=== PATIENT | male | born 1945 | race Caucasian/White ===

== ENCOUNTER 2019-01-02 10:42 | Observation (INO) ==
[~2019-01-02 10:42] MED LIST: CEFAZOLIN 1000MG 1,000 MG/7.5 ML SYR IV SCH; LR 15ML/HR IV SCH; PATIENT'S ALLERGY INFO NEEDS ENTERED SCH
[2019-01-02] MEDS ORDERED: BUPIVACAINE 0.5 % 5 MG/1 ML PF 10ML VIAL ONE (10:55)
[2019-01-02] MEDS ORDERED: BACITRACIN INJ 50,000 UNIT VIAL ONE (10:55)
[2019-01-02] MEDS ORDERED: LIDOCAINE HCL 1% 20 ML VIAL ONE (10:55)
--- NOTE | 2019-01-02 11:04 | History & Physical Bridge Note ---
Date of Service January 02, 2019 History & Physical Bridge Note I have examined the patient, reviewed the History & Physical and in the interval since the performance of the History & Physical I have noted the following changes of clinical significance: no changes noted
--- NOTE | 2019-01-02 11:05 | Pre Anesthesia Assessment ---
Date of Service January 02, 2019 Pre Sedation Assessment Cardiovascular RRR, no murmur, no edema Respiratory normal respiratory effort, lungs clear to auscultation Pre-Sedation Airway Assessment Smoking Status: Former smoker Hx Sleep Apnea: No Hx Difficult Intubation: No Short, Thick Neck: No Thyromental Distance: < 3.5 Finger Breadths Oral Cavity: + WNL Mallampati Class: II ASA: ASA3 Procedure Planning Contraindications for Sedation: none Current Medications Reviewed: Yes Notes The planned sedation has been discussed with the patient. Informed Consent was obtained. I have identified the patient, determined the appropriateness of sedation and have assessed the patient immediately prior to the procedure. All medicine(s) and interventions are by my order.
[2019-01-02] MEDS ORDERED: fentaNYL citrate 100 MCG/2 ML VIAL ONE (11:09)
[2019-01-02] MEDS ORDERED: CEFAZOLIN 250 MG/ML 1 GM VIAL ONE (11:09)
[2019-01-02] MEDS ORDERED: MIDAZOLAM HCL 5 MG/ML 1 ML VIAL ONE (11:09)
[2019-01-02] MEDS ORDERED: OXYCODONE/ACETAMINOPHEN 5mg/325mg TAB PO PRN (13:17)
[2019-01-02] MEDS ORDERED: ACETAMINOPHEN 325 MG TAB PO PRN (13:17)
--- NOTE | 2019-01-02 13:17 | Operative Report ---
Post Operative Report Pre & Post Diagnosis icm, chronic systolic CHF-NYHA Class III, LBBB Operation Date: 01/02/19 13:00 <No data on this case meets the specified criteria> Procedure Operation Date: 01/02/19 13:00 Actual Procedures p ICD Biventricular Implant - DO lilia Stewart Cineradiography w/Routine Exam - DO lilia Stewart Venogram, Unilateral - Adia Tripathi DO Surgeon Adia Tripathi, Train Starter none Estimated Blood Loss 20 Findings Consistent with Post-Op Diagnosis Specimens none Description of Procedure see official report I attest to the content of the Intraoperative Record and any orders documented therein. Any exceptions are noted below.
--- NOTE | 2019-01-02 13:17 | Post Anesthesia Assessment ---
Date of Service January 02, 2019 Post Sedation Assessment Vital Signs Temp Pulse Resp BP Pulse Ox 01/02/19 11:01 36.5 C 92 H 16 143/69 H 96 Recovery Score Activity: Moves 4 extremities Respiration: Deep Breath/Cough Circulation: +/-20% PreAnes Value Consciousness: Fully Awake Oxygen Saturation: > 92% On Room Air Discharge Sedation Level of Care: Fast Track Phase II Post Sedation Plan On clinical assessment, the patient appears to have tolerated the sedation without complications. Patient is recovering as anticipated. Patient will continue to be monitored by nursing and may be discharged when sedation discharge criteria are met per below protocol. Upon Completions of procedure and additional 15 minutes continue every 5 minute vital signs and the P.A.R. score; then discharge to a Phase I or Fast Track to Phase II per the following guidelines: * Discharge Patient to appropriate Phase II area if PAR is 8 or greater or return to pre- procedure baseline. The post - procedure orders will be as directed. * If PAR score is less than 8 or not return to pre-procedure baseline then patient will follow Phase I monitoring till PAR is reached for Phase II. The Phase I may be done in procedure room or may call to secure a Phase I area. * If naloxone or flumazenil are used for reversal, hold in Phase I for continued monitoring from when last reversal dose was given for a minimum of 60 minutes or longer pending the nurse and/or physician discretion of patient condition before discharge to Phase II. Please call the Sedation Physician to re-evaluate and complete post-note for discharge to Phase II area. Do NOT discharge from procedure sedation or Phase 1 until post- sedation evaluation note is complete by procedure /sedation MD Sedation Discharge Instructions to be given to the patient at discharge to home.
[2019-01-02] MEDS ORDERED: COLCHICINE 0.6 MG TAB PO PRN (13:19)
--- NOTE | 2019-01-02 13:25 | Discharge Summary ---
Date of Service January 02, 2019 Admission HPI Pt admitted for elective biv ICD Admission Exam Per Admitting Provider aaox3, NAD NC/AT, EOMI Supple No JVD Nrl S1/S2, No murmur CTA b/l no w/r/r soft nt/nd no LE edema b/l skin intact no focal deficits Principal Diagnosis Principal Diagnosis ICM s/p BiV ICD Discharge Exam aaox3, NAD NC/AT, EOMI Supple No JVD Nrl S1/S2, No murmur CTA b/l no w/r/r soft nt/nd no LE edema b/l skin intact no focal deficits left pectoral incision intact, no hematoma mild ecchymosis Discharge Data Allergies Allergy/AdvReac Type Severity Reaction Status Date / Time No Known Allergies Allergy Verified 01/02/19 11:23 Procedures Performed Operation Date: 01/02/19 13:00 Actual Procedures p ICD Biventricular Implant - dAia Tripathi DO s Cineradiography w/Routine Exam - Adia Tripathi DO s Venogram, Unilateral - Adia Tripathi DO Ordered Studies 01/02/19 07:30 EP Lab Images for PACS ONCE Hospital Course (1) Ischemic cardiomyopathy: (2) LBBB (left bundle branch block): (3) Chronic systolic congestive heart failure, NYHA class 2: Total Time Total Time Spent Total Time Spent (In Minutes): 30 Total Time Includes: Examination of the Patient, Medication Reconciliation and Other Discharge Plan Discharge Items Patient Disposition: Home - Self-Care Reason For Visit: Ischemic Cardiomyopathy Discharge Diagnosis: icm, LBBB, Chronic systolic HF-NYHA Class II Condition: Good Discharge Goals: Improve function Activity: As commented below Activity Comment: do not lift the left elbow over the left shoulder for 1 month Lifting: No more than 10 pounds Lifting Comment: do not lift more than 10 pounds with the left arm for 2 weeks Bathing: Keep incision dry Bathing Comment: can shower monday01/04/2019 Driving/Machine Use: Resume 1 day after discharge Non-emergency contact: Data Security Consultant Call non-emergency contact if: you have any medication questions Follow-up/Referrals: PCP,NO [Primary Care Provider] - Diet: Heart Healthy Addtl Provider Instructions: none Prescriptions: Continue isosorbide mononitrate 30 mg Tablet Extended Release 24 Hr 30 mg PO DAILY RF: 0 clopidogrel [Plavix] 75 mg Tablet 75 mg PO DAILY RF: 0 nitroglycerin [Nitrostat] 0.4 mg Tablet, Sublingual See Label Instructions .ROUTE .COMPLEX RF: 0 aspirin 81 mg Tablet,Chewable 81 mg PO DAILY RF: 0 metoprolol succinate [Toprol XL] 25 mg Tablet Extended Release 24 Hr 25 mg PO BID RF: 0 ergocalciferol (vitamin D2) 50,000 unit Capsule 50,000 unit PO DAILY RF: 0 colchicine 0.6 mg Tablet 0.6 mg PO Q6HWA PRN (Reason: Pain) RF: 0 losartan 100 mg Tablet 100 mg PO DAILY RF: 0 multivitamin Capsule 1 cap PO DAILY RF: 0 Stand-Alone Forms: [facility] Discharge Orders: Discharge Order (Routine); Ordered 01/03/19 Ordered By: Adia Tripathi Admission Data Admit Date/Time: 01/02/19 13:17 Attending Provider: Adia Tripathi Admit Provider: Adia Tripathi Primary Care Provider: PCP,RENEE Service: Telemetry
[2019-01-02] MEDS: METOPROLOL SUCC 25MG EXT REL TAB PO SCH (20:06)
--- NOTE | 2019-01-02 23:08 | Operative Report ---
DATE OF OPERATION: 01/02/2019 PREOPERATIVE DIAGNOSES: Ischemic cardiomyopathy, chronic systolic heart failure, [place] Heart Association class 2, left bundle branch block. POSTOPERATIVE DIAGNOSES: Ischemic cardiomyopathy, chronic systolic heart failure, [place] Heart Association class 2, left bundle branch block. PROCEDURE: Biventricular rate responsive implantable cardiac defibrillator under fluoroscopic guidance along with peripheral and coronary sinus venograms. SURGEON: Adia Tripathi DO. MARITIME GUARD: None. ANESTHESIA: Monitored conscious sedation administered under my supervision by Lynne Bo. Start time 1128, end time 1303. Total of 4 mg of Versed, 100 mcg of fentanyl. IV FLUIDS: 95 mL. CONTRAST: 25 mL. ANTIBIOTICS: 1 gram of Ancef. COMPLICATIONS: None. CONDITION: Stable. URINE OUTPUT: None. SPECIMENS: None. FINDINGS: See below. DRAINS: None. BLOOD LOSS: 20 mL. INDICATIONS: This is a 73-year-old gentleman with a past medical history for ischemic cardiomyopathy initially diagnosed in 03/2018 with an ejection fraction of 28%. 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 Due to his ischemic cardiomyopathy, left bundle and chronic systolic heart failure, it is recommended biventricular defibrillator. CONSENT: Consent was obtained prior to the patient going into Electrophysiology Lab. The patient was explained the risks, benefits, alternatives of procedure. Risks include but not limited to sudden cardiac , cardiac arrhythmias, vasectomy, myocardial infarction, injury to the blood vessels, chamber of the heart, lung, bleeding and infection. The patient understood these risks and agreed to the procedure as planned. Informed consent was obtained. DESCRIPTION OF THE PROCEDURE: The patient was brought into the Electrophysiology Lab in a fasting state. He was connected to continuous heel room supervisor. A timeout was performed to ensure patient identity and procedure correctly. The patient was prepped and draped in the left infraclavicular space in normal surgical standard fashion. Monitored conscious sedation was given throughout the procedure. [place] precautions maintained throughout the procedure. A 10 mL of 1% lidocaine/bupivacaine mixture were given in left deltopectoral groove. Incision was made in left deltopectoral groove. Blunt dissection was performed down to identify the cephalic vein. Cephalic vein was identified and isolated using 0 silk ties. Then a peripheral venogram was performed to identify the axillary vein using 10 mL of IV contrast diluted in 10 mL of saline followed by 20 mL flush. Venous access was obtained through an axillary stick and a guidewire was inserted without any resistance. Then I went back to the cephalic vein, I nicked it with an 11 blade and a guidewire was inserted without any resistance. An 8-Sudanese sheath was inserted over the guidewire without any resistance. Dilator was removed and a second guidewire was inserted over the guidewire through the sheath to allow for retained venous access. The sheath was removed and 9.5-Sudanese sheath was then advanced over the 1 guidewire through the cephalic vein. Without any restrictions, the guidewire and dilator removed. The right ventricular defibrillator lead was then advanced into right ventricle and positioned into right ventricular apex under fluoroscopic guidance. There was adequate pacing and sensing thresholds and no diaphragmatic stimulation with output pacing. The 9.5-Sudanese sheath was peeled away and lead was fixated to pectoralis muscle using 0 silk suture. A 7-Sudanese sheath was then advanced over the retained guidewire through the cephalic vein without any restrictions. The guidewire and dilator removed and the right atrial pacing lead was advanced into right atrium and positioned into right atrial appendage under fluoroscopic guidance. There was adequate pacing and sensing thresholds. There was no diaphragmatic stimulation with high output pacing. A 7-Sudanese sheath was peeled away and lead was fixated to pectoralis muscle using 0 silk suture. We then set up to do the left ventricular pacing lead. A 9.5-Sudanese sheath was inserted over the guidewire that was through the axillary venous site. A guidewire and dilator removed and then under fluoroscopic guidance, the [employer] Command MPX diagnostic catheter was advanced into the right atrium over a Glidewire. The Glidewire and dilator removed. Then, the coronary sinus was cannulated using a diagnostic Decapolar EP Biosense catheter and the MPX was then advanced out over the coronary sinus, EP diagnostic catheter into the coronary sinus. The balloon was then advanced through the MPX sheath and a coronary sinus venogram was performed that demonstrated a beautiful posterolateral branch. A Whisper wire was then advanced through the MPX outer sheath and out into the posterolateral branch and then the pacing lead was advanced over the Whisper wire under fluoroscopic guidance. There was adequate pacing and sensing thresholds and no diaphragmatic stimulation with high output pacing. The Whisper wire was removed and a stylet was placed down into the lead for some support. Then under fluoroscopic guidance, the Attain MPX Command sheath was slit, then the 9.5-Sudanese sheath was peeled away. The LV lead was then fixated to pectoralis muscle using 0 silk suture. A pacemaker pocket was created using blunt dissection over the pectoralis muscle within the pectoral fascia. Pocket was flushed with copious amounts of bacitracin saline wash and inspected for hemostasis. The defibrillator was then attached to lead making sure that the pins were in appropriate position, passed the set screws and the set screws were all tightened. Pulse generator was then placed in an antibiotic Tyrx pouch and then placed in the pocket making sure that the leads were lying flat beneath the device. Marilee stat was placed in the pocket as well. Incision was then closed in a 3-layer fashion using 2-0 Vicryl interrupted suture, followed by 3-0 Vicryl interrupted suture, followed by 4-0 Monocryl running stich and Dermabond was applied. EQUIPMENT: 1. The generator is Cyan[employer]ia MRI Quad EDUCATION COORDINATOR-D SureScan [id number], serial number [id number]. 2. Right atrial lead: Medtronic 5076-52 cm, serial number [id number]. 3. Right ventricular lead: Medtronic 6935M-62 cm, serial number [id number]. 4. Left ventricular pacing lead is a Medtronic 4598-88 cm, serial number [id number]. 5. The antibiotic Tyrx pouch is lot number [id number]. INTRAOPERATIVE TESTIN. Right atrial lead: P-wave 9.1 millivolts, impedance 753 ohms, threshold 0.3 volts at 0.3 milliamps. 2. Right ventricular lead: R-wave 17.9 millivolts, impedance 734 ohms, threshold 0.4 volts at 0.5 milliamps. 3. Left ventricular lead programmed LV2 to LV3, impedance 460 ohms, threshold 0.7 volts at 1.5 milliamps. FINAL MEASUREMENTS THROUGH THE DEVICE: 1. Right atrial lead: P-wave 6 millivolts, impedance 513 ohms, threshold 0.75 volts at 0.4 milliseconds. 2. Right ventricular lead: R waves 20 millivolts, impedance 627 ohms, threshold 0.5 volts at 0.4 milliseconds. 3. Left ventricular lead programmed LV3 to LV4, impedance 646 ohms, threshold 1 volt at 0.4 milliseconds. FINAL PARAMETERS: DDD 60/140, right atrial and right ventricular amplitude 3.5 volts, pulse width 0.4 milliseconds, sensitivity 0.3 millivolts. Left ventricular amplitude 4 volts, pulse width 0.4 milliseconds. VT zone 157 beats per minute for 20 detection intervals and a VF zone at 200 beats per minute for 30/40 detection intervals. IMPRESSION: Successful implantation of biventricular rate responsive implantable cardiac defibrillator secondary to ischemic cardiomyopathy, chronic systolic heart failure and left bundle branch block. PLAN: Monitor the patient overnight with 12-lead ECG, chest x-ray. He is not allowed to lift left elbow over left shoulder for 1 month. He cannot lift more than 10 pounds with the left arm for 2 weeks. He should follow up in our [facility] in 1 week's time for device and wound check. He can shower in 2 days and he can continue his home medications. I attest to the content of the Intraoperative Record and any orders documented therein. Any exceptions are noted below. LEON
--- NOTE | 2019-01-03 06:46 | XRay Report ---
XR chest 2V routine HISTORY: 73 years-old Male post implant status post placement of a left subclavian pacer COMPARISON: None available TECHNIQUE: PA and lateral views of the chest FINDINGS: Lateral view is limited secondary to positioning of the upper extremities. Status post placement of a left subclavian pacer/AICD with leads overlying the expected locations of the right atrium and bilat eral ventricles. Heart is upper limits of normal in size. No postprocedural pneumothorax identified. Mild right hemidiaphragmatic elevation. Mild interstitial coarsening. Suggestion of mild pleural thic kening about the lateral right mid hemithorax. Healed remote fracture deformity about the left clavic le. Degenerative changes of the shoulders and spine. IMPRESSION: Status post placement of a left subclavian pacer/AICD. No postprocedural pneumothorax. The above report was generated using voice recognition software. It may contain grammatical, syntax o r spelling errors. Electronically signed by: Marco Wilson M.D. 01/03/2019 6:44 AM
[2019-01-03] MEDS: METOPROLOL SUCC 25MG EXT REL TAB PO SCH (08:27)
[2019-01-03 08:31] VITALS: TEMP 98.4; O2SAT 94
[2019-01-03] MEDS ORDERED: ISOSORBIDE MONO EXTENDED REL 30 MG TABCR PO SCH (09:00)
[2019-01-03] MEDS ORDERED: CLOPIDOGREL BISULFATE 75 MG TAB PO SCH (09:00)
[2019-01-03] MEDS ORDERED: MULTIVITAMIN TAB PO SCH (09:00)
[2019-01-03] MEDS ORDERED: LOSARTAN POTASSIUM 50 MG TAB PO SCH (09:00)
[2019-01-03] MEDS ORDERED: ASPIRIN 81 MG ECTAB PO SCH (09:00)
[2019-01-03 09:49] VITALS: BP 143/69; PULSE 80
[2019-01-05] MEDS ORDERED: ERGOCALCIFEROL 50,000 UNITS CAP PO SCH (09:00)
== END 2019-01-03 10:35 | disposition home or self-care (01) ==
LOC: ASU 10:42 → 2S 10:42
PROC: EPB.ICD (2019-01-02 13:00)
DX: I50.22 Chronic systolic (congestive) heart failure; Z85.048 Personal history of other malignant neoplasm of rectum, rectosigmoid junction, and anus; Z85.528 Personal history of other malignant neoplasm of kidney; I25.5 Ischemic cardiomyopathy; Z90.5 Acquired absence of kidney; Z79.899 Other long term (current) drug therapy; I44.7 Left bundle-branch block, unspecified; E78.5 Hyperlipidemia, unspecified; Z93.3 Colostomy status